=== PATIENT | male | born 1970 | race Two or more races ===

== ENCOUNTER 2020-09-08 08:45 | Inpatient (IN) | payer OTHER ==
[~2020-09-08] VITALS: Ht 175.3 cm; Wt 123.4 kg
[2020-09-08] MEDS ORDERED: RESTORIL30 M1 PO (11:04)
[2020-09-08] MEDS ORDERED: GABAPENTIN800 M1 PO (11:05)
[2020-09-08] MEDS ORDERED: AVALIDE 300-121 EACH PO (11:05)
[2020-09-15] MEDS ORDERED: COLACE100 MG PO (16:03)
[2020-09-15] MEDS ORDERED: DIAZEPAM5 MG PO (16:03)
[2020-09-15] MEDS ORDERED: PERCOCET 5-3251 EACH PO (16:03)
== END 2020-09-16 12:30 | disposition home or self-care (01) | DRG 472 ==
LOC: O/R 09-15 06:34 → SURH 09-15 08:45 → EDBD 09-15 08:45 → SURH 09-15 19:08
PROVIDERS: ADMIT Orthopaedic Surgery Orthopaedic Surgery of the Spine; ATTEND Orthopaedic Surgery Orthopaedic Surgery of the Spine
PROC: 0RT30ZZ Resection of Cervical Vertebral Disc, Open Approach (ICD-10-PCS; 2020-09-15)
PROC: 07DS3ZZ Extraction of Vertebral Bone Marrow, Percutaneous Approach (ICD-10-PCS; 2020-09-15)
PROC: 4A12X4Z Monitoring of Cardiac Electrical Activity, External Approach (ICD-10-PCS; 2020-09-15)
PROC: 0RG20A0 Fusion of 2 or more Cervical Vertebral Joints with Interbody Fusion Device, Anterior Approach, Anterior Column, Open Approach (ICD-10-PCS; principal; 2020-09-15 23:15)
DX: M50.021 Cervical disc disorder at C4-C5 level with myelopathy (principal); M47.12 Other spondylosis with myelopathy, cervical region; M50.022 Cervical disc disorder at C5-C6 level with myelopathy; M50.023 Cervical disc disorder at C6-C7 level with myelopathy; Z20.828 Contact with and (suspected) exposure to other viral communicable diseases; M48.02 Spinal stenosis, cervical region

== ENCOUNTER 2020-10-12 11:06 | Emergency (ER) | payer OTHER ==
[~2020-10-12] VITALS: Ht 177.8 cm; Wt 116.1 kg
[~2020-10-12 11:06] MED LIST: AVALIDE 300-121 EACH PO; COLACE100 MG PO; DIAZEPAM5 MG PO; GABAPENTIN800 M1 PO; PERCOCET 5-3251 EACH PO; RESTORIL30 M1 PO
[2020-10-12] MEDS ORDERED: MEDROLPACK PO (15:18)
== END 2020-10-12 15:41 | disposition home or self-care (01) ==
LOC: ER 11:06
DX: L76.82 Other postprocedural complications of skin and subcutaneous tissue (principal); L53.8 Other specified erythematous conditions; Y83.8 Other surgical procedures as the cause of abnormal reaction of the patient, or of later complication, without mention of misadventure at the time of the procedure; Z03.818 Encounter for observation for suspected exposure to other biological agents ruled out

== ENCOUNTER 2025-09-23 06:57 | Day surgery (SDC) | payer OTHER ==
[~2025-09-23 06:57] MED LIST changes: +MEDROLPACK PO
[2025-09-23] MEDS ORDERED: fentaNYL CITRATE 50 MCG/ML AMPUL IV PUSH ONE (09:45)
[2025-09-23] MEDS ORDERED: DIPHENHYDRAMINE HCL 50 MG/ML VIAL 1ML IV ONE (09:45)
[2025-09-23] MEDS ORDERED: MIDAZOLAM HCL 2 MG/2 ML VIAL IV ONE (09:45)
== END 2025-09-23 10:55 | disposition home or self-care (01) ==
LOC: AMB-ENDOS 06:57
PROVIDERS: ATTEND Colon & Rectal Surgery
DX: K62.1 Rectal polyp (principal)